=== PATIENT | male | born 1965 | race Caucasian/White ===

== ENCOUNTER → 2017-01-07 | Outpatient (CLI) | payer BC | LOC: HEART 5 10:46 | DX: R60.0 Localized edema (principal) | CPT/HCPCS: 93306 ==

== ENCOUNTER → 2020-11-01 | Outpatient (CLI) | payer BC, OTHER ==
[~2020-11-01] MED LIST: KEFLEX CAP 500500 MG PO; LODINE CAP 300300 MG PO
== END ==
LOC: CT 07:30
DX: K42.0 Umbilical hernia with obstruction, without gangrene (principal); E27.8 Other specified disorders of adrenal gland
CPT/HCPCS: 36415; 74160; 82565; 84520; Q9967

== ENCOUNTER 2021-04-02 22:33 | Emergency (ER) | payer BC, OTHER ==
[2021-04-02 23:24] LABS: HEMOGLOBIN 14.7 gm/dl (14.0-17.5); RED BLOOD COUNT 4.98 M/UL (4.20-5.50); WHITE BLOOD COUNT 8.4 K/UL (4.5-11.0)
[2021-04-03] LABS: BUN/CREATININE RATIO 12 (0-10)
== END 2021-04-03 03:39 | disposition home or self-care (01) ==
LOC: ER1 22:33
PROVIDERS: Student in an Organized Health Care Education/Training Program
DX: R07.9 Chest pain, unspecified (principal); I10 Essential (primary) hypertension; Z20.822 Contact with and (suspected) exposure to COVID-19; E11.9 Type 2 diabetes mellitus without complications; Z90.49 Acquired absence of other specified parts of digestive tract; M10.9 Gout, unspecified
CPT/HCPCS: 71045; 80053; 82550; 82553; 83690; 83874; 84484; 85025; 93005; 99285; U0002

== ENCOUNTER → 2021-05-19 | Outpatient (CLI) | payer BC, OTHER | LOC: HEART 5 05-13 08:45 | DX: I11.0 Hypertensive heart disease with heart failure (principal); I50.9 Heart failure, unspecified; R00.2 Palpitations; E78.49 Other hyperlipidemia; R07.9 Chest pain, unspecified; R06.02 Shortness of breath; I48.0 Paroxysmal atrial fibrillation; I25.5 Ischemic cardiomyopathy | CPT/HCPCS: 78452; A9502; J2785 ==

== ENCOUNTER → 2022-03-10 | Outpatient (CLI) | payer BC, OTHER | LOC: CT 12:51 | DX: E27.8 Other specified disorders of adrenal gland (principal); E11.9 Type 2 diabetes mellitus without complications; I10 Essential (primary) hypertension; E78.5 Hyperlipidemia, unspecified; D17.9 Benign lipomatous neoplasm, unspecified; F41.9 Anxiety disorder, unspecified | CPT/HCPCS: 36415; 74170; 82565; 84520; Q9967 ==